=== PATIENT | female | born 2000 | race Hispanic/Latino ===

== ENCOUNTER 2025-04-23 17:20 | Emergency (ER) | payer SELFPAY ==
[2025-04-23 17:25] VITALS: BP 129/80
--- NOTE | 2025-04-23 18:44 | ED.SKININJ ---
HPI-Injury
General
Chief Complaint: Bite
Source: patient
Exam Limitations: none
Time Seen by Provider: 04/23/25 18:12
Nursing documentation reviewed up to this point in time: agreed with
History of Present Illness-Injury
Initial Injury comments:
Patient is a 24-year-old female who presents to the emergency department for evaluation of dog bite to her left forearm. Patient states that she walked out of her house this evening when her neighbors dog approached her and bit her on the left
forearm.
She fortunately was able to pull her arm away immediately however the dog did cause 2 lacerations on her forearm. The dog is fully vaccinated. She denies any numbness/tingling of left arm or digit. She denies any weakness in her hand or fingers.
No other injury sustained.
Patient states that her last tetanus shot was in 2020 when she gave to her child.
Review of Systems
Review of Systems
Allergies reviewed?: Yes
All Other Systems: ROS reviewed and negative except as documented in HPI and ROS
Phy Exam
Physical Exam
Physical Exam:
Vitals: Patient's vital signs are stable. Afebrile
General: Patient is well appearing, no acute distress
Skin: 2 cm gaping laceration on left proximal ventral forearm with approximately 1.5 cm gaping laceration just distal to this with large surrounding contusion
Head: Normocephalic, atraumatic
Throat: Protecting airway
Neck: Normal ROM, no cervical spine tenderness
Cardiac: Regular rate
Pulm: No apparent respiratory distress
Abdomen: Nondistended
Extremities: Laceration and contusion to left forearm as described above. 2+ palpable left brachial and radial pulse with normal sensation and capillary refill. Full range of motion in left elbow and left wrist without pain. Compartments soft.
Neuro: Grossly intact
Psychiatric: Normal affect.
Course
Orders/Labs/Results
Orders:
Orders
04/23/25 19:51
Amoxicillin 875 mg/Clav 125 mg [Augmentin 875 mg/125 mg] 1 tablet PO NOW STA
Vital Signs
Initial and Last Documented VS:
Initial Vital Signs
Temp Pulse Resp BP Pulse Ox
98.0 F 103 20 129/80 98
04/23/25 17:25 04/23/25 17:25 04/23/25 17:25 04/23/25 17:25 04/23/25 17:25
Last Documented Vital Signs
Temp Pulse Resp BP Pulse Ox
98.0 F 103 20 129/80 98
04/23/25 17:25 04/23/25 17:25 04/23/25 17:25 04/23/25 17:25 04/23/25 18:46
Procedures
Laceration Closure
Left Proximal Arm:
Status of Wound: clean
Size of Wound in cm: 2
Description of Wound Edges: sharp
Preparation: cleaned with saline and cleaned with Betadine
Anesthesia: 1% Lidocaine with epi
Revision/Debridement: routine- no revision
Wound exploration: explored to base- no FB
Type of Closure: single layer closure
Skin Closure Material: 4-0 nylon
Number of sutures: 3
Additional information:
3 very loose simple interrupted 4-0 nylon sutures to approximate edges
Left Arm:
Status of Wound: clean
Size of Wound in cm: 1.5
Description of Wound Edges: sharp
Preparation: cleaned with saline
Anesthesia: 1% Lidocaine with epi
Revision/Debridement: routine- no revision
Wound exploration: explored to base- no FB
Type of Closure: interrupted sutures
Skin Closure Material: 4-0 nylon
Number of sutures: 2
Additional information:
2 loose simple interrupted 4-0 nylon sutures placed for general approximation of skin edges
MDM/Problems Addressed
Differential Diagnosis Includes:
Not limited to: Dog bite, laceration, contusion, etc.
MDM/Problems Addressed:
24-year-old presenting after seeing dog bites to left forearm from her neighbors dog. The dog is fully up-to-date with vaccinations. Patient's Tdap was updated 2020. Vitals and physical exam as above. There are 2 gaping lacerations of left
proximal ventral forearm. Left upper extremity neurovascularly intact. Discussed with attending physician. As wounds are gaping�discussed very loose closure with sutures out and healing by secondary intention. Reviewed increased infection risks
and patient consents to proceeding with loose closure with sutures.
Verbal consent obtained by patient. Wounds anesthetized with local anesthesia, 1% lidocaine with epinephrine. Lacerations irrigated extremely thoroughly with normal saline. Wound edges approximated very loosely with a few simple interrupted
sutures. Patient tolerated procedure well. Nonstick dressing applied by RN.
No indication for Tdap booster today. Will start patient on�first dose given in emergency department. Discussed importance of very, very close monitoring for any signs of infection. Wound care instructions discussed at length and need for suture
removal in 7 days. She will follow with primary care. Patient comfortable with plan and stable for discharge home.
Chronic conditions affecting care:
N/A
Acute Exacerbation and/or Progression of Chronic Illness:
N/A
*Pulse Oximetry
SaO2: 98
Oxygen Mode of Delivery: Room air
Patient hypoxic: no
*EKG
Interpreted by ED Provider?: NA
*Brim Stiffener Interpretation
Rate: Brim Stiffener- N/A
*Critical Care Note
Total Time (30-74mins, 75-104mins- exclusive of procedures): Not Applicable
ED Attending Note
-
Portions of this chart may have been created with voice recognition software.� Occasional wrong word or��sound alike� substitutions may have occurred due to the inherent limitations of voice recognition software.
Discharge Plan
Departure
Patient Disposition: Home (Routine Discharge)
Date of Disposition: 04/23/25
Time of Disposition: 19:52
Patient with high blood pressure during this ER visit?: Yes
Discharge Problem:
Dog bite of left forearm
Instructions: Animal Bites (DC), Laceration Repair With Stitches (DC), BLOOD PRESSURE
Prescriptions:
New
amoxicillin-pot clavulanate 875-125 mg tablet
1 tab PO BID 5 Days Qty: 10 0RF
Referrals:
NONE,* [Family Provider, Internal Medicine]
Activity Restrictions/Additional Instructions:
RETURN TO THE EMERGENCY DEPARTMENT ANY SIGNS OF INFECTION INCLUDING FEVER, CHILLS, PUS DRAINING FROM WOUND, SIGNIFICANT REDNESS, SWELLING OR RED STREAKING AWAY FROM WOUND, INTRACTABLE PAIN, OR ANY OTHER CONCERNS
- As discussed�your 2 wounds were closed with sutures today in the emergency department. These need to be removed in 7 to 10 days. This can be done at your primary care, urgent care, or emergency department
- Please keep wound clean and dry. Wash gently with soap and water. Keep covered until sutures are removed.
- An antibiotic has been sent to your pharmacy which you should take twice a day for the next 5 days.
- Please ensure that you did receive a tetanus shot within the last 5 years.
MONITOR VERY CLOSELY FOR ANY SIGNS OF INFECTION RETURN WITH ANY NEW SYMPTOMS OR SIGNS ARE WORRISOME TO YOU
Interventions
Interventions:
*Risk Screen - Suicide Last Done: 04/23/25 17:34
*General Assessment Last Done: 04/23/25 17:25
*Neglect/Abuse Screening Last Done: 04/23/25 17:34
*ED- Fall Risk Assessment Last Done: 04/23/25 17:34
*ED COVID-19 Vaccine History Last Done: 04/23/25 17:34
*Nursing Disposition Last Done: 04/23/25 20:08
ED-Skin Assessment Last Done: 04/23/25 17:34
Discharge Date and Time
Discharge Date/Time: 04/23/25 20:09
Print Language: CENTRAL AFRICAN
[2025-04-23] MEDS: AUGMENTIN 875 MG/125 MG 1 TABLET PO (19:59)
== END 2025-04-23 20:09 | disposition home or self-care (01) ==
LOC: EMR 17:20
PROVIDERS: EMERGENCY PHYSICIAN Emergency Medicine
DX: S51.852A Open bite of left forearm, initial encounter (principal); W54.0XXA Bitten by dog, initial encounter; Y93.01 Activity, walking, marching and hiking; Y92.008 Other place in unspecified non-institutional (private) residence as the place of occurrence of the external cause
CPT/HCPCS: 99283; 12002